=== PATIENT | male | born 1955 | race African-American/Black ===

== ENCOUNTER 2024-01-11 17:51 | Emergency (ER) | payer BC, MEDICAID ==
[~2024-01-11] VITALS: Ht 167.6 cm; Wt 95.8 kg
[2024-01-11] MEDS ORDERED: HYDR-3965 PO (19:16)
[2024-01-11] MEDS: HYDROcodone/acetaminophen 10/325mg tab PO ONE (19:25)
[2024-01-11 19:30] VITALS: BP 191/97; PULSE 95; RESP 18; TEMP 98.8; O2SAT 99
== END 2024-01-11 20:15 | disposition home or self-care (01) ==
LOC: ER 17:52
DX: M54.50 Low back pain, unspecified (principal); I73.89 Other specified peripheral vascular diseases
CPT/HCPCS: 99283

== ENCOUNTER 2024-02-16 10:27 | Emergency (ER) | payer BC, MEDICAID ==
[~2024-02-16] VITALS: Ht 167.6 cm; Wt 95.0 kg
[2024-02-16 10:35] VITALS: TEMP 98.4
[2024-02-16] MEDS ORDERED: GLIP10TA11 PO (10:40)
[2024-02-16] MEDS ORDERED: FLUT15.87 (10:40)
[2024-02-16] MEDS ORDERED: EMPA25TA PO (10:40)
[2024-02-16] MEDS ORDERED: GABA-530 PO (10:40)
[2024-02-16] MEDS ORDERED: ALBU10.7 (10:40)
[2024-02-16] MEDS ORDERED: QUET100T34 PO (10:40)
[2024-02-16] MEDS ORDERED: FURO40TA4 PO (10:40)
[2024-02-16] MEDS: orphenadrine citrate 60mg/2ml inj. IM ONE (11:53)
[2024-02-16] MEDS: ketorolac trometh 15mg/ml vial 15 MG/ML ML IM ONE (11:53)
[2024-02-16] MEDS ORDERED: CYCL-1 PO (13:53)
[2024-02-16 14:28] VITALS: BP 112/64; PULSE 92; RESP 12; O2SAT 99
== END 2024-02-16 14:30 | disposition home or self-care (01) ==
LOC: ER 10:27
DX: M54.2 Cervicalgia (principal); I10 Essential (primary) hypertension; E11.9 Type 2 diabetes mellitus without complications; Z79.899 Other long term (current) drug therapy
CPT/HCPCS: 72040; 96372; 99284; J1885; J2360

== ENCOUNTER 2024-03-03 01:05 | Emergency (ER) | payer BC, MEDICAID ==
[~2024-03-03] VITALS: Ht 167.6 cm; Wt 98.2 kg
[~2024-03-03 01:05] MED LIST: ALBU10.7; CYCL-1 PO; EMPA25TA PO; FLUT15.87; FURO40TA4 PO; GABA-530 PO; GLIP10TA11 PO; QUET100T34 PO
[2024-03-03 01:07] VITALS: BP 166/100; PULSE 87; RESP 16; O2SAT 100
== END 2024-03-03 01:31 | disposition left against medical advice (07) ==
LOC: ER 01:06
DX: F32.A Depression, unspecified (principal); Z53.21 Procedure and treatment not carried out due to patient leaving prior to being seen by health care provider

== ENCOUNTER 2024-03-09 19:02 | Emergency (ER) | payer BC, MEDICAID ==
[~2024-03-09] VITALS: Ht 167.6 cm; Wt 95.0 kg
[2024-03-09 19:19] VITALS: TEMP 99.1
[2024-03-09 19:48] LABS: BASOPHILS # (AUTO) 0.1 X10'3 (0-0.2); BASOPHILS % (AUTO) 0.8 % (0-1); EOSINOPHILS # (AUTO) 0.1 X10'3 (0-0.9); EOSINOPHILS % (AUTO) 0.8 % (0-6); HEMATOCRIT 36.9 % (42.0-52.0); HEMOGLOBIN 12.3 g/dl (14.0-17.9); LYMPHOCYTES # (AUTO) 1.7 X10'3 (1.1-4.8); LYMPHOCYTES % (AUTO) 20.9 % (21-51); MEAN CORPUSCULAR HEMOGLOBIN 28.8 PG (27.0-31.0); MEAN CORPUSCULAR HGB CONC 33.4 g/dL (33.0-36.5); MEAN CORPUSCULAR VOLUME 86.1 FL (78-98); MEAN PLATELET VOLUME 7.7 FL (7.4-10.4); MONOCYTES # (AUTO) 0.3 X10'3 (0-0.9); MONOCYTES % (AUTO) 4.1 % (2-12); NEUTROPHILS % (AUTO) 73.4 % (42-75); PLATELET COUNT 547 X10'3 (140-440); RED BLOOD COUNT 4.28 X10'6 (4.70-6.10); RED CELL DISTRIBUTION WIDTH 13.8 % (11.5-14.5); WHITE BLOOD COUNT 8.2 X10'3 (4.5-11.0)
[2024-03-09 20:02] LABS: ALANINE AMINOTRANSFERASE 55 U/L (12-78); ALBUMIN 3.2 G/DL (3.4-5.0); ALBUMIN/GLOBULIN RATIO 0.8 (1.1-1.5); ALKALINE PHOSPHATASE 138 IU/L (46-116); ANION GAP 9 (8-16); ASPARTATE AMINO TRANSFERASE 27 U/L (10-37); BILIRUBIN,TOTAL 0.4 MG/DL (0.1-1.0); BLOOD UREA NITROGEN 19 MG/DL (7-18); BUN/CREATININE RATIO 9.5 (10.0-20.0); CALCIUM 8.7 MG/DL (8.5-10.1); CHLORIDE 102 MMOL/L (99-107); CREATININE 2.01 MG/DL (0.60-1.10); GLUCOSE 320 MG/DL (70-104); POTASSIUM 4.2 MMOL/L (3.5-5.1); SODIUM 135 MMOL/L (135-145); TOTAL CARBON DIOXIDE 23.6 MMOL/L (24-32); TOTAL PROTEIN 7.3 G/DL (6.4-8.2); eCRCL 32 ML/MIN; eGFR 40 ML/MIN
[2024-03-09 20:10] LABS: PRO BRAIN NATRIURETIC PEPTIDE 5313 PG/ML (0-125)
[2024-03-09 21:26] VITALS: BP 156/75; PULSE 87; RESP 18; O2SAT 99
== END 2024-03-10 00:11 | disposition left against medical advice (07) ==
LOC: ER 19:02
DX: R06.02 Shortness of breath (principal); Z53.21 Procedure and treatment not carried out due to patient leaving prior to being seen by health care provider; I51.7 Cardiomegaly
CPT/HCPCS: 36415; 71045; 80053; 83880; 84484; 85025; 93005

== ENCOUNTER 2024-08-18 08:35 | Emergency (ER) | payer BC, MEDICAID ==
[~2024-08-18] VITALS: Ht 167.6 cm; Wt 89.5 kg
[~2024-08-18 08:35] MED LIST changes: +ADV50100 INH; +ATOR10TA87 PO; +CARV3.122 PO; +CLOP75TA33 PO; -FLUT15.87; +FURO-149 PO; -FURO40TA4 PO; -GABA-530 PO; -GLIP10TA11 PO; +LANTUS SQ; +LISI-642 PO; +SYRI-641 SUBCUT; +SYRI1DIS90 SUBCUT
[2024-08-18 08:40] VITALS: BP 167/73; PULSE 85; RESP 18; TEMP 98.5; O2SAT 97
[2024-08-18] MEDS ORDERED: AMOX500C2 PO (09:22)
[2024-08-18] MEDS: amoxicillin 250mg capsule PO ONE (09:33)
== END 2024-08-18 09:47 | disposition home or self-care (01) ==
LOC: ER 08:35
DX: H72.91 Unspecified perforation of tympanic membrane, right ear (principal); H66.91 Otitis media, unspecified, right ear; E11.59 Type 2 diabetes mellitus with other circulatory complications; I10 Essential (primary) hypertension; Z79.4 Long term (current) use of insulin
CPT/HCPCS: 99283

== ENCOUNTER 2024-08-31 16:17 | Emergency (ER) | payer BC, MEDICAID ==
[~2024-08-31] VITALS: Ht 167.6 cm; Wt 90.9 kg
[2024-08-31 16:20] VITALS: BP 202/106; PULSE 89; RESP 18; TEMP 97.6; O2SAT 98
== END 2024-08-31 18:05 | disposition home or self-care (01) ==
LOC: ER 16:18
DX: H92.01 Otalgia, right ear (principal); Z53.21 Procedure and treatment not carried out due to patient leaving prior to being seen by health care provider

== ENCOUNTER 2024-09-07 11:13 | Inpatient (IN) | payer BC, MEDICAID ==
[~2024-09-07] VITALS: Ht 170.2 cm; Wt 90.0 kg
[~2024-09-07 11:13] MED LIST changes: -EMPA25TA PO; -LISI-642 PO
[2024-09-07 12:57] LABS: BASOPHILS % (AUTO) 0.6 % (0-1); EOSINOPHILS # (AUTO) 0.1 X10'3 (0-0.9); EOSINOPHILS % (AUTO) 0.9 % (0-6); HEMATOCRIT 37.9 % (42.0-52.0); HEMOGLOBIN 12.4 g/dl (14.0-17.9); LYMPHOCYTES % (AUTO) 12.9 % (21-51); MEAN CORPUSCULAR HEMOGLOBIN 27.6 PG (27.0-31.0); MEAN CORPUSCULAR HGB CONC 32.7 g/dL (33.0-36.5); MEAN CORPUSCULAR VOLUME 84.3 FL (78-98); MEAN PLATELET VOLUME 8.1 FL (7.4-10.4); MONOCYTES # (AUTO) 0.6 X10'3 (0-0.9); MONOCYTES % (AUTO) 7.4 % (2-12); NEUTROPHILS % (AUTO) 78.2 % (42-75); PLATELET COUNT 243 X10'3 (140-440); WHITE BLOOD COUNT 7.6 X10'3 (4.5-11.0)
[2024-09-07 13:16] LABS: ALANINE AMINOTRANSFERASE 65 U/L (12-78); ALBUMIN 3.4 G/DL (3.4-5.0); ALKALINE PHOSPHATASE 184 IU/L (46-116); ANION GAP 7 (8-16); ASPARTATE AMINO TRANSFERASE 30 U/L (10-37); BILIRUBIN,TOTAL 0.6 MG/DL (0.1-1.0); BLOOD UREA NITROGEN 19 MG/DL (7-18); BUN/CREATININE RATIO 13.9 (10.0-20.0); CALCIUM 8.8 MG/DL (8.5-10.1); CHLORIDE 110 MMOL/L (99-107); CREATININE 1.37 MG/DL (0.60-1.10); GLUCOSE 102 MG/DL (70-104); POTASSIUM 4.5 MMOL/L (3.5-5.1); SODIUM 141 MMOL/L (135-145); TOTAL CARBON DIOXIDE 24.3 MMOL/L (24-32); TOTAL PROTEIN 6.9 G/DL (6.4-8.2); eCRCL 48 ML/MIN; eGFR 63 ML/MIN
[2024-09-07 13:19] LABS: PRO BRAIN NATRIURETIC PEPTIDE 9314 PG/ML (0-125)
[2024-09-07] MEDS: acetaminophen 325mg tablet PO ONE (13:28)
[2024-09-07] MEDS: furosemide 40mg/4ml inj IV ONE (15:12)
[2024-09-07] MEDS ORDERED: potassium Cl 20 mEq SR tablet PO PRN ×2 (20:10)
[2024-09-07] MEDS ORDERED: magnesium sulf-water 4G/100mL 100 ML IV PRN (20:10)
[2024-09-07] MEDS ORDERED: ondansetron/PF 4mg/2ml inj IV PRN (20:10)
[2024-09-07] MEDS ORDERED: potassium Cl 40MEQ/1/2NS 520ml 520 ML IV PRN (20:10)
[2024-09-07] MEDS ORDERED: magnesium Cl slow-release 64mg tablet PO PRN (20:10)
[2024-09-07] MEDS ORDERED: magnesium hydroxide 30ml (MOM) UD suspension PO PRN (20:10)
[2024-09-07] MEDS ORDERED: magnesium sulf-water 2g/50mL 50 ML IV PRN (20:10)
[2024-09-07] MEDS ORDERED: mag hydrox/Alum hydrox/simeth 30ml oral suspension PO PRN (20:10)
[2024-09-07] MEDS: carVEDilol 3.125mg tablet PO SCH (20:30)
[2024-09-07] MEDS: acetaminophen 325mg tablet PO PRN (20:30)
[2024-09-07 20:54] VITALS: PULSE 109; RESP 32; O2SAT 100
[2024-09-07] MEDS: ipratropium/albuterol 3ml nebule NEB PRN (20:54)
[2024-09-07 20:56] LABS: APTT 31 SECONDS (22-32); INR 1.1 INR; PROTHROMBIN TIME 10.8 SECONDS (9.0-12.0)
[2024-09-07 21:01] VITALS: PULSE 111; RESP 32
[2024-09-07] MEDS: morphine 2 MG/ML inj. syringe IV PRN (21:13)
[2024-09-07] MEDS ORDERED: DEXTROSE 15 GM of carb/4 tabs (each vial/BOTTLE has 4 tablets) PO PRN ×2 (21:50)
[2024-09-07] MEDS ORDERED: glucagon, human recombinant 1mg kit SUBCUT PRN (21:50)
[2024-09-07] MEDS ORDERED: dextrose 50%-water 50ml dispensing syringe IV PRN ×2 (21:50)
[2024-09-07 22:00] VITALS: BP 158/86; PULSE 105; RESP 26; TEMP 99.2; O2SAT 96
[2024-09-07] MEDS: lisinopril 5mg tablet PO SCH (22:22)
[2024-09-07] MEDS ORDERED: QUET-1 PO (23:48)
[2024-09-08] VITALS (10 sets, daily range): BP systolic 93–145; BP diastolic 42–77; PULSE 95–104; RESP 18–28; TEMP 97.7–98.5; O2SAT 87–100
[2024-09-08] MEDS: quetiapine 100mg tablet PO ONE (00:52)
[2024-09-08 06:08] LABS: BASOPHILS % (AUTO) 0.5 % (0-1); EOSINOPHILS % (AUTO) 0.3 % (0-6); HEMATOCRIT 38.7 % (42.0-52.0); HEMOGLOBIN 12.6 g/dl (14.0-17.9); LYMPHOCYTES # (AUTO) 0.7 X10'3 (1.1-4.8); LYMPHOCYTES % (AUTO) 10.5 % (21-51); MEAN CORPUSCULAR HEMOGLOBIN 27.7 PG (27.0-31.0); MEAN CORPUSCULAR HGB CONC 32.6 g/dL (33.0-36.5); MEAN CORPUSCULAR VOLUME 84.8 FL (78-98); MEAN PLATELET VOLUME 8.4 FL (7.4-10.4); MONOCYTES # (AUTO) 0.6 X10'3 (0-0.9); MONOCYTES % (AUTO) 8.3 % (2-12); NEUTROPHILS # (AUTO) 5.7 X10'3 (1.8-7.7); NEUTROPHILS % (AUTO) 80.4 % (42-75); PLATELET COUNT 233 X10'3 (140-440); RED BLOOD COUNT 4.57 X10'6 (4.70-6.10); RED CELL DISTRIBUTION WIDTH 15.1 % (11.5-14.5); WHITE BLOOD COUNT 7.1 X10'3 (4.5-11.0)
[2024-09-08 06:22] LABS: ALANINE AMINOTRANSFERASE 63 U/L (12-78); ALBUMIN 3.2 G/DL (3.4-5.0); ALBUMIN/GLOBULIN RATIO 0.9 (1.1-1.5); ALKALINE PHOSPHATASE 183 IU/L (46-116); ANION GAP 9 (8-16); ASPARTATE AMINO TRANSFERASE 29 U/L (10-37); BILIRUBIN,TOTAL 0.7 MG/DL (0.1-1.0); BLOOD UREA NITROGEN 24 MG/DL (7-18); BUN/CREATININE RATIO 15.6 (10.0-20.0); CALCIUM 8.7 MG/DL (8.5-10.1); CHLORIDE 106 MMOL/L (99-107); CHOLESTEROL 79 MG/DL (0-200); CREATININE 1.54 MG/DL (0.60-1.10); GLUCOSE 62 MG/DL (70-104); HDL CHOLESTEROL 39 MG/DL (35-60); LDL CHOLESTEROL 31 MG/DL (50-100); MAGNESIUM 1.8 MG/DL (1.5-2.4); POTASSIUM 4.2 MMOL/L (3.5-5.1); SODIUM 141 MMOL/L (135-145); TOTAL CARBON DIOXIDE 25.6 MMOL/L (24-32); TOTAL PROTEIN 6.9 G/DL (6.4-8.2); TRIGLYCERIDES 56 MG/DL (20-135); eCRCL 43 ML/MIN; eGFR 55 ML/MIN
[2024-09-08] MEDS: INSULIN LISPRO 100 UNIT/ML INSULN.PEN MULTI-DOSE SQ SCH ×2 (07:00→09:00)
[2024-09-08] MEDS: K and/or MAG REPLACEMENT MC SCH (08:00)
[2024-09-08] MEDS: Fluticasone/Salmeterol (Advair 100-50 Diskus) IH SCH (08:00)
[2024-09-08 08:01] LABS: HEMOGLOBIN A1C 11.6 % (4.5-6.2)
[2024-09-08] MEDS: furosemide 40mg/4ml inj IV SCH (10:56)
[2024-09-08] MEDS: heparin, porcine 5000 units/ml vial SQ SCH (11:00)
[2024-09-08] MEDS: docusate sod 100mg capsule PO SCH (11:02)
[2024-09-08] MEDS: clopidogrel 75mg tablet PO SCH (11:02)
[2024-09-08] MEDS: atorvastatin 10mg tablet PO SCH (11:02)
[2024-09-08] MEDS: EMPAGLIFLOZIN 10 MG TABLET PO SCH (11:02)
[2024-09-08] MEDS: spironolactone 25 MG tablet PO SCH (13:00)
[2024-09-08] MEDS: hyDRALAzine 10mg tablet PO SCH (16:17)
[2024-09-08] MEDS: carVEDilol 12.5mg tablet PO SCH (20:41)
[2024-09-08] MEDS: quetiapine 100mg tablet PO SCH (20:47)
[2024-09-08] MEDS: insulin glargine (Lantus) pen - multi-dose SQ SCH (22:29)
[2024-09-08] MEDS: benzonatate 100mg capsule PO PRN (22:31)
[2024-09-09] VITALS (10 sets, daily range): BP systolic 108–149; BP diastolic 71–81; PULSE 90–98; RESP 17–34; TEMP 97.9–98; O2SAT 95–98
[2024-09-09] MEDS: benzonatate 100mg capsule PO ONE (04:31)
[2024-09-09] MEDS ORDERED: lisinopril 10 MG tablet PO SCH (08:00)
[2024-09-09] MEDS: EMPAGLIFLOZIN 25 MG TABLET PO SCH (09:13)
[2024-09-09] MEDS: guaiFENesin 200 MG/10 ML oral syrup UD cup PO PRN (09:14)
[2024-09-09] MEDS: methylPREDNISolone sod succ 125mg/2ml vial IV SCH (11:22)
[2024-09-09] MEDS: LORazepam 1 MG tablet PO PRN (11:22)
[2024-09-09] MEDS: cyclobenzaprine 10mg tablet PO PRN (12:02)
[2024-09-09] MEDS ORDERED: guaiFENesin ER 600mg tablet PO SCH (20:00)
== END 2024-09-09 18:50 | disposition left against medical advice (07) | DRG 280 ==
LOC: ER 11:14 → ED HOLD 20:14 → UNDOADMIN 20:14 → ORTHO 4S 20:14
PROVIDERS: ADMIT Internal Medicine Critical Care Medicine; ATTEND Internal Medicine
DX: I13.0 Hypertensive heart and chronic kidney disease with heart failure and stage 1 through stage 4 chronic kidney disease, or unspecified chronic kidney disease (principal); I50.23 Acute on chronic systolic (congestive) heart failure; I21.A1 Myocardial infarction type 2; J96.01 Acute respiratory failure with hypoxia; N17.0 Acute kidney failure with tubular necrosis; Z53.21 Procedure and treatment not carried out due to patient leaving prior to being seen by health care provider; E11.51 Type 2 diabetes mellitus with diabetic peripheral angiopathy without gangrene; E11.22 Type 2 diabetes mellitus with diabetic chronic kidney disease; N18.9 Chronic kidney disease, unspecified; E11.65 Type 2 diabetes mellitus with hyperglycemia; Z79.01 Long term (current) use of anticoagulants; Z79.899 Other long term (current) drug therapy; Z79.4 Long term (current) use of insulin; Z91.148 Patient's other noncompliance with medication regimen for other reason
CPT/HCPCS: 36415; 71045; 80053; 80061; 82948; 83036; 83735; 83880; 84484; 85025; 85610; 85730; 87081; 93005; 94640; 94760; 96374; 99285; A4615; G0378; J1644; J1815; J1940; J2270; J2919

== ENCOUNTER 2024-10-05 12:08 | Inpatient (IN) | payer BC, MEDICAID ==
[~2024-10-05] VITALS: Ht 167.6 cm; Wt 91.0 kg
[~2024-10-05 12:08] MED LIST changes: -ATOR10TA87 PO; -CARV3.122 PO; -FURO-149 PO; +QUET-1 PO; -QUET100T34 PO; -SYRI-641 SUBCUT; -SYRI1DIS90 SUBCUT
[2024-10-05 12:18] VITALS: TEMP 97.8
--- NOTE | 2024-10-05 12:24 | ELECTROCARDIOGRAPH REPORT ---
[facility] Test Date: 2024-10-05 Test Time: 12:22:49 Pat Name: AGATA RANDALL Department: EMERGENCY ROOM Room: Gender: M Hand Ii Thermal Cutter: RM : 1955 Requested By: MAURICIO WIGGINS Order Number: [id number] Reading MD: Measurements Intervals [place] Rate: 93 P: 68 KS: 177 QRS: -71 QRSD: 128 T: 89 QT: 399 QTc: 497 Interpretive Statements Sinus rhythm Probable left atrial enlargement Left bundle branch block Please click the below link to view image of tracing.
--- NOTE | 2024-10-05 12:53 | RADIOLOGY REPORT ---
CHEST RADIOGRAPH Indication: CP Technique: Single frontal view of the chest was obtained Comparison: DI CHEST,SINGLE VIEW on DOS: 09/07/24, DI CHEST,SINGLE VIEW on DOS: 09/01/24, DI CHEST,SINGL E VIEW on DOS: 07/24/24, DI CHEST,SINGLE VIEW on DOS: 03/09/24 FINDINGS: Lines and Tubes: None Lungs: No focal consolidation. Pleura: No effusion. No pneumothorax. Cardiomediastinal contours: Unremarkable Bones: No acute osseous abnormality. IMPRESSION: No acute cardiopulmonary disease.
--- NOTE | 2024-10-05 14:20 | Physician Documentation ---
History of Present Illness ~ Chief Complaint: Shortness of Breath Stated Complaint: COUGH Time Seen by MD: 16:08 Primary Medical Doctor: Hospitalist/Resident Service HPI This 69-year-old male with history of hypertension diabetes who was recently diagnosed with congestive heart failure presents with increased dyspnea with exertion, patient reports additionally that he has had a persistent cough worse at night since being discharged from the hospital. Patient is awaiting a stress test by his taxation accountant for a decision about placing a permanent implantable defibrillator and is currently wearing a life vest wearable defibrillator. Patient reports no chest pain or fever. And acknowledged that he also had a long history with a cigarette smoking and has not been diagnosed with COPD Day of Onset: October 05, 2024 Medication Reconciliation Allergies: Coded Allergies: No Known Allergies (Unverified , 09/07/24) Scheduled Clopidogrel Bisulfate (Clopidogrel), 1 TAB PO DAILY, (Reported) Fluticasone/Salmeterol (Advair 100-50 Diskus), 1 PUFFS INH Q12H Insulin Glargine,Hum.rec.anlog* (Lantus*), 15 UNIT SQ BID Quetiapine Fumarate* (Seroquel*), 1 TAB PO HS, (Reported) Scheduled PRN Cyclobenzaprine* (Cyclobenzaprine*), 1 TABLET PO Q8H PRN for muscle spasms Miscellaneous Medications Albuterol Sulfate/Budesonide (Airsupra 90-80 Mcg Inhaler), (Reported) Past Medical History Past Medical History: Hypertension, Vascular Disease, Diabetes Past Surgical History: noncontributory Patient History: Patient reports no known family medical history. Alcohol Use: Sober Drug Use: none Review of Systems All Other Systems at this time: Reviewed and Negative ROS As stated above in the HPI, otherwise all systems are reviewed and negative. Physical Exam Vital Signs: Temperature: 97.8, Source: Temporal, Heart Rate: 91, Respiratory Rate: 18, BP: 116/67, Pulse Oximetry: 99, Weight: 91.000 Physical Exam VITALS: Reviewed and as above. GENERAL: Alert, nontoxic appearing, mild increased work of breathing HEENT: RESPIRATORY: Mild increased work of breathing, no respiratory distress, speaking in full clear sentences. Rales in bilateral lung parada, diminished at the bases. CHEST: CV: Tachycardic regular rhythm BACK: NEURO: PSYCH: Progress Results/Orders Results/Orders Orders - FELICIANOMAURICIO H [employer] Chest,Single View (10/05/24 12:37) Monitor (10/05/24 12:20) Saline Lock (10/05/24 12:20) Oxygen (10/05/24 12:20) Hs Troponin I W Calculations (10/05/24 15:20) Page Hospitalist (10/05/24 17:35) Fill Out Med Reconciliation (10/05/24 17:35) Completed Orders - MAURICIO WIGGINS H [employer] Chest,Single View (10/05/24 12:37) Cbc/Diff (10/05/24 12:20) Electrocardiogram (10/05/24 12:20) Furosemide Inj (Lasix Inj) (10/05/24 17:50) Vital Signs 10/05/24 10/05/24 10/05/24 12:18 14:52 17:00 Temp 97.8 Pulse 91 86 Resp 18 18 16 B/P (MAP) 116/67 123/81 (95) Pulse Ox 99 98 Laboratory Tests Test 10/05/24 14:39 10/05/24 16:15 White Blood Count 8.3 Red Blood Count 5.28 Hemoglobin 14.7 Hematocrit 44.6 Mean Corpuscular Volume 84.6 Mean Corpuscular Hemoglobin 27.8 Mean Corpuscular Hemoglobin Concent 32.9 L Red Cell Distribution Width 16.4 H Platelet Count 231 Mean Platelet Volume 8.8 Neutrophils (%) (Auto) 65.7 Lymphocytes (%) (Auto) 24.9 Monocytes (%) (Auto) 5.8 Eosinophils (%) (Auto) 2.4 Basophils (%) (Auto) 1.2 H Neutrophils # (Auto) 5.5 Lymphocytes # (Auto) 2.1 Monocytes # (Auto) 0.5 Eosinophils # (Auto) 0.2 Basophils # (Auto) 0.1 CBC Comment Chemistry Comments Sodium Level 143 Potassium Level 4.8 Chloride Level 108 H Carbon Dioxide Level 26.6 Anion Gap 8 Blood Urea Nitrogen 36 H Creatinine 1.83 H Estimated GFR/1.73 m2 45 BUN/Creatinine Ratio 19.7 Glucose Level 113 H Calcium Level 8.9 Total Bilirubin 0.5 Aspartate Amino Transf (AST/SGOT) 14 Alanine Aminotransferase (ALT/SGPT) 33 Alkaline Phosphatase 174 H Troponin I High Sensitivity 35 Pro-B-Type Natriuretic Peptide 2911 H Total Protein 7.3 Albumin 3.8 Globulin 3.5 Albumin/Globulin Ratio 1.1 Medical Decision Making Findings MSE performed in triage and patient returned to ED lobby by nursing staff Based on patient's history and overall presentation , since as a suspected COPD/CHF exacerbation based on his increased work of breathing and notable rales at the bases. Does not present with any chest pain or signs of cardiac events however he does present as a fragile patient who could easily decompensate. Likely will require some increased diuresis while inpatient Differential Dx:Considerations: Include: anxiety, asthma, bronchitis, cardiogenic shock, CHF, COPD, dysrhythmia, hypertension, accelerated, hypertension, essential, hypertension, malignant, hyperventilation, hyponatremia, myocardial infarction, panic attack, pneumonia, pneumonitis, pneumothorax, PSVT, pulmonary embolism, respiratory distress, respiratory failure, sinusitis, upper resp. infection, other Departure Disposition: ADMITTED INPATIENT Impression: Primary Impression: Acute on chronic diastolic heart failure Additional Impressions: CHF (congestive heart failure) SOB (shortness of breath) Condition: Fair Referrals: NO PRIMARY CARE PROVIDER (PCP) Signature Scribe Signature: f Attestation: The note accurately reflects work and decisions made by me.Mauricio Wiggins - KATELYN 10/05/24 18:46 PROMISE SALVADOR October 05, 2024 14:20 MAURICIO WIGGINS NP October 05, 2024 17:13
[2024-10-05 14:49] LABS: BASOPHILS # (AUTO) 0.1 X10'3 (0-0.2); BASOPHILS % (AUTO) 1.2 % (0-1); EOSINOPHILS # (AUTO) 0.2 X10'3 (0-0.9); EOSINOPHILS % (AUTO) 2.4 % (0-6); HEMATOCRIT 44.6 % (42.0-52.0); HEMOGLOBIN 14.7 g/dl (14.0-17.9); LYMPHOCYTES # (AUTO) 2.1 X10'3 (1.1-4.8); LYMPHOCYTES % (AUTO) 24.9 % (21-51); MEAN CORPUSCULAR HEMOGLOBIN 27.8 PG (27.0-31.0); MEAN CORPUSCULAR HGB CONC 32.9 g/dL (33.0-36.5); MEAN CORPUSCULAR VOLUME 84.6 FL (78-98); MEAN PLATELET VOLUME 8.8 FL (7.4-10.4); MONOCYTES # (AUTO) 0.5 X10'3 (0-0.9); MONOCYTES % (AUTO) 5.8 % (2-12); NEUTROPHILS # (AUTO) 5.5 X10'3 (1.8-7.7); NEUTROPHILS % (AUTO) 65.7 % (42-75); PLATELET COUNT 231 X10'3 (140-440); RED BLOOD COUNT 5.28 X10'6 (4.70-6.10); RED CELL DISTRIBUTION WIDTH 16.4 % (11.5-14.5); WHITE BLOOD COUNT 8.3 X10'3 (4.5-11.0)
[2024-10-05 17:13] LABS: ALANINE AMINOTRANSFERASE 33 U/L (12-78); ALBUMIN 3.8 G/DL (3.4-5.0); ALBUMIN/GLOBULIN RATIO 1.1 (1.1-1.5); ALKALINE PHOSPHATASE 174 IU/L (46-116); ANION GAP 8 (8-16); ASPARTATE AMINO TRANSFERASE 14 U/L (10-37); BILIRUBIN,TOTAL 0.5 MG/DL (0.1-1.0); BLOOD UREA NITROGEN 36 MG/DL (7-18); BUN/CREATININE RATIO 19.7 (10.0-20.0); CALCIUM 8.9 MG/DL (8.5-10.1); CHLORIDE 108 MMOL/L (99-107); CREATININE 1.83 MG/DL (0.60-1.10); GLUCOSE 113 MG/DL (70-104); POTASSIUM 4.8 MMOL/L (3.5-5.1); SODIUM 143 MMOL/L (135-145); TOTAL CARBON DIOXIDE 26.6 MMOL/L (24-32); TOTAL PROTEIN 7.3 G/DL (6.4-8.2); eCRCL 35 ML/MIN; eGFR 45 ML/MIN
[2024-10-05 17:20] LABS: PRO BRAIN NATRIURETIC PEPTIDE 2911 PG/ML (0-125)
[2024-10-05] MEDS ORDERED: magnesium sulf-water 2g/50mL 50 ML IV PRN (18:45)
[2024-10-05] MEDS ORDERED: ondansetron/PF 4mg/2ml inj IV PRN (18:45)
[2024-10-05] MEDS ORDERED: acetaminophen 325mg tablet PO PRN (18:45)
[2024-10-05] MEDS ORDERED: magnesium sulf-water 4G/100mL 100 ML IV PRN (18:45)
[2024-10-05] MEDS ORDERED: morphine 2 MG/ML inj. syringe IV PRN ×2 (18:45)
[2024-10-05] MEDS ORDERED: magnesium Cl slow-release 64mg tablet PO PRN (18:45)
[2024-10-05] MEDS ORDERED: mag hydrox/Alum hydrox/simeth 30ml oral suspension PO PRN (18:45)
[2024-10-05] MEDS ORDERED: magnesium hydroxide 30ml (MOM) UD suspension PO PRN (18:45)
[2024-10-05] MEDS ORDERED: potassium Cl 40MEQ/1/2NS 520ml 520 ML IV PRN (18:45)
[2024-10-05] MEDS ORDERED: potassium Cl 20 mEq SR tablet PO PRN ×2 (18:45)
[2024-10-05] MEDS ORDERED: ipratropium/albuterol 3ml nebule NEB PRN (18:50)
[2024-10-05] MEDS ORDERED: glucagon, human recombinant 1mg kit SUBCUT PRN (18:50)
[2024-10-05] MEDS ORDERED: DEXTROSE 15 GM of carb/4 tabs (each vial/BOTTLE has 4 tablets) PO PRN ×2 (18:50)
[2024-10-05] MEDS ORDERED: dextrose 50%-water 50ml dispensing syringe IV PRN ×2 (18:50)
[2024-10-05] MEDS: furosemide 10 MG/1 ML 10ml inj IV ONE (18:56)
--- NOTE | 2024-10-05 18:58 | HISTORY AND PHYSICAL-Residence ---
History & Physical Providers to CC Resident Creating Document: YAS CARNEYMEGHALUIS HOUSE CC: SHANELL BROWN MD ~ History of Present Illness Primary Medical Doctor: Hospitalist/Resident Service Reason for Admit\Complaint: Shortness of breath History of Present Illness Patient is a 69-year-old male with history of CHF, PAD, hypertension, diabetes type 2, hyperlipidemia and COPD who came to the ED due to shortness of breath. Patient reports that for the past 2 weeks he has been experiencing increase shortness of breath on exertion, he states he can only walk about 20 ft before having to stop to catch his breath, in addition he reports orthopnea, PND and a productive cough that he has had for several weeks now. He denies fevers, chills, or any other flu-like symptoms. Patient reports having a known EF of 20%, he is a patient of Dr. Farmer, last appointment was 2 weeks ago and he has been worked up for a possible ICD. He currently wears a LifeVest. He denies using oxygen at home. He used to have a PCP in [place], but currently does not have one. Allergies: Coded Allergies: No Known Allergies (Unverified , 09/07/24) Home Medications Home Medications Active Advair 100-50 Diskus (Salmeterol Xinafoate/Fluticasone) 1 Each Disk.w.dev 1 Puffs INH Q12H 30 Days Lantus* (Insulin Glargine) 100 Unit/1 Ml Vial 15 Unit SQ BID 30 Days Cyclobenzaprine* (Cyclobenzaprine HCl) 10 Mg Tablet 1 Tablet PO Q8H PRN Reported Seroquel* (Quetiapine Fumarate) 100 Mg Tablet 1 Tab PO HS 30 Days Clopidogrel (Clopidogrel Bisulfate) 75 Mg Tablet 1 Tab PO DAILY 30 Days Airsupra 90-80 Mcg Inhaler (Albuterol Sulfate/Budesonide) 90 Mcg-80 Mcg/Actuation Hfa.aer.ad Past Medical History Past Medical History CHF, PAD, hypertension, diabetes type 2, hyperlipidemia and COPD Past Surgical History Surgical History Comment Right femoral bypass x3 Family History Family History: FH: hypertension FH: type 2 diabetes Past Social History Smoking: Quit greater than 1 year (Used to smoke 2 packs a day since age 36), Less than 1 pack/day Alcohol Use: Sober (Quit 7 years ago) Drug Use: None (Used to do crack, quit 7 years ago) Lives with: Alone Lives In: Other (Motel) Occupation: disabled ROS ROS All systems were reviewed and found negative except for pertinent positives mentioned in HPI Exam Vitals: Vital Signs Date Time Temp Pulse Resp B/P (MAP) Pulse Ox O2 Delivery O2 Flow Rate FiO2 10/05/24 17:00 16 10/05/24 14:52 86 123/81 (95) 98 10/05/24 12:18 97.8 General: General: awake, alert oriented to place, time, and person HEENT: No pallor present, no icterus, moist mucous membranes Neck: No masses and tenderness Resp: Unlabored. Faint bilateral basal crackles. No wheezing or rhonchi Chest: Symmetric, LifeVest in place Heart: Regular Rate and rhythm, normal S1 and S2 without murmur, rub or gallop Abdomen: Soft and non tender no organomegaly, no guarding and rigidity, bowel sounds present Neuro: No weakness in the upper and lower limb muscles, power of the muscles 5/5 bilateral upper and lower muscles, knee reflex present bilaterally. Cranial nerves intact Extremities: Chronic ectatic changes. No cyanosis,clubbing or edema Skin: Warm and Dry. No lesions Diagnostic Data Last Recorded Lab Results: 10/05/24 1439 10/05/24 1615 Advance Care Planning Advanced Care plannin - 30 Minutes Additional Plan Patient is a 69-year-old male with history of CHF, PAD, hypertension, diabetes type 2, hyperlipidemia and COPD who came to the ED due to shortness of breath. Admitted for evaluation and management of acute on chronic heart failure with reduced ejection fraction. Acute on chronic heart failure with reduced ejection fraction, EF 20% Hypertension Hyperlipidemia COPD, not in exacerbation History of PAD Patient is currently tolerating room air Chest x-ray is unremarkable ProBNP is 2911 Prior echocardiogram shows EF of 20-25% Patient follows with Dr. Farmer on an outpatient basis Given 60 mg of IV Lasix in ED. Will continue 40 mg IV b.i.d. Will continue GDMT. Pending med rec DuoNebs q.4 PRN Strict I's and O's and daily weights Fluid restriction to 1.2 L a day Type 2 diabetes Uncontrolled according to last A1c Pending repeated A1c Start Lantus 15 units, lispro 3 units, low-dose supplemental HOMERO on CKD, likely prerenal secondary to vasomotor nephropathy Creatinine is 1.8 Baseline is around 1.5 We will continue monitor BMP Code Status: Full code DVT prophylaxis: Heparin Nutrition: Carb controlled diet PT: Ordered Prognosis: Guarded Disposition: Admit to PCU with tele monitoring. Continue medical management Luis Tan MD Internal Medicine Resident PGY-1 Date of Service: October 05, 2024 Billing Provider: SHANELL BROWN MD, LEONARDO LUIS October 05, 2024 18:58
[2024-10-05] MEDS ORDERED: ATOR40TA72 PO (19:42)
[2024-10-05] MEDS ORDERED: LISI10TA27 PO (19:42)
[2024-10-05] MEDS ORDERED: ATOR10TA70 PO (19:43)
[2024-10-05] MEDS ORDERED: TAMS-55 PO (19:49)
[2024-10-05] MEDS ORDERED: CARV3.122 PO (19:50)
[2024-10-05] MEDS ORDERED: PREG50CA65 PO (19:56)
[2024-10-05] MEDS ORDERED: SACU1TAB PO (19:56)
[2024-10-05] MEDS ORDERED: SPIR25TA5 PO (19:57)
[2024-10-05] MEDS: K and/or MAG REPLACEMENT MC SCH (19:59)
[2024-10-05] MEDS: heparin, porcine 5000 units/ml vial SQ SCH (20:00)
[2024-10-05] MEDS ORDERED: FURO20TA4 PO (20:07)
[2024-10-05] MEDS: docusate sod 100mg capsule PO SCH (20:18)
[2024-10-05 20:45] VITALS: BP 118/70; PULSE 92; RESP 18; O2SAT 99
[2024-10-05] MEDS ORDERED: insulin glargine (Lantus) pen - multi-dose SQ SCH (21:00)
[2024-10-05] MEDS ORDERED: INSULIN LISPRO 100 UNIT/ML INSULN.PEN MULTI-DOSE SQ SCH (21:00)
[2024-10-06] MEDS ORDERED: furosemide 40mg/4ml inj IV SCH (08:00)
[2024-10-06] MEDS ORDERED: INSULIN LISPRO 100 UNIT/ML INSULN.PEN MULTI-DOSE SQ SCH (09:00)
== END 2024-10-05 21:59 | disposition left against medical advice (07) | DRG 291 ==
LOC: ER 12:09 → ED HOLD 18:45
PROVIDERS: ADMIT Family Medicine; ATTEND Family Medicine
DX: I13.0 Hypertensive heart and chronic kidney disease with heart failure and stage 1 through stage 4 chronic kidney disease, or unspecified chronic kidney disease (principal); I50.33 Acute on chronic diastolic (congestive) heart failure; N17.0 Acute kidney failure with tubular necrosis; E11.22 Type 2 diabetes mellitus with diabetic chronic kidney disease; N18.9 Chronic kidney disease, unspecified; E11.51 Type 2 diabetes mellitus with diabetic peripheral angiopathy without gangrene; E78.5 Hyperlipidemia, unspecified; J44.9 Chronic obstructive pulmonary disease, unspecified; Z83.3 Family history of diabetes mellitus; Z82.49 Family history of ischemic heart disease and other diseases of the circulatory system; Z87.891 Personal history of nicotine dependence; Z79.899 Other long term (current) drug therapy; Z53.29 Procedure and treatment not carried out because of patient's decision for other reasons
CPT/HCPCS: 36415; 71045; 80053; 83880; 84484; 85025; 93005; 99285; G0378; J1815; J1938; J7030